=== PATIENT | female | born 1970 | race American Indian/Alaskan Native ===

== ENCOUNTER 2016-11-28 18:56 | Emergency (ER) | payer OTHER ==
--- NOTE | 2016-12-01 12:41 | ED Elopement Review ---
ED Pt Elopement review - Call Back decision Pt Call Back Decision: No action required
== END 2016-11-28 20:00 | disposition left against medical advice (07) ==
LOC: ED 18:56
DX: M79.673 Pain in unspecified foot (principal); Z53.21 Procedure and treatment not carried out due to patient leaving prior to being seen by health care provider

== ENCOUNTER 2018-03-07 01:06 | Emergency (ER) | payer OTHER ==
[2018-03-07] MEDS ORDERED: NORCO 5/325 PO ONE (05:37)
[2018-03-07] MEDS ORDERED: MOTRIN PO ONE (05:37)
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
[2018-03-07 07:03] VITALS: BP 167/88
== END 2018-03-07 06:20 | disposition home or self-care (01) ==
LOC: ED 01:06
DX: R51 Headache (principal); M79.602 Pain in left arm; M54.2 Cervicalgia; I10 Essential (primary) hypertension; E11.9 Type 2 diabetes mellitus without complications; V89.2XXA Person injured in unspecified motor-vehicle accident, traffic, initial encounter; Y93.89 Activity, other specified; Y92.89 Other specified places as the place of occurrence of the external cause; Y99.8 Other external cause status
CPT/HCPCS: 99283